=== PATIENT | female | born 1970 | race Caucasian/White ===

== ENCOUNTER 2020-12-13 17:10 | Emergency (ER) | payer SELFPAY ==
[~2020-12-13] VITALS: Ht 157.5 cm; Wt 97.5 kg
[2020-12-13 17:29] VITALS: BP 190/117; Ht 157.5 cm; Wt 97.5 kg
[2020-12-13 18:21] LABS: BASOPHIL % 0.6 % (0.2-1.3); PLATELET COUNT 291 x10^3mcL (179-408); RED CELL DISTRIBUTION WIDTH 12.7 % (12.3-17.7)
[2020-12-13 18:34] LABS: CALCIUM 9.9 mg/dL (8.5-10.1); CARBON DIOXIDE 27.5 mmol/L (21-32); CHLORIDE SERUM 103 mmol/L (98-107); CREATININE SERUM 0.6 mg/dL (0.6-1.0); GFR1 > 60 mL/min; GLUCOSE SERUM 114 mg/dL (74-106); SODIUM SERUM 138 mmol/L (136-145)
[2020-12-13 18:39] LABS: ALBUMIN 4.1 g/dL (3.4-5.0); ALKALINE PHOSPHATASE 120 U/L (46-116); ALT/SGPT 49 U/L (14-59); AST/SGOT 35 U/L (15-37); BILIRUBIN TOTAL 0.24 mg/dL (0.20-1.00)
[2020-12-13 18:46] LABS: TOTAL PROTEIN, SERUM 8.3 g/dL (6.4-8.2)
== END 2020-12-13 19:30 | disposition home or self-care (01) ==
LOC: ED 17:10
PROVIDERS: Emergency Medicine
DX: R07.89 Other chest pain (principal); I10 Essential (primary) hypertension; Z88.0 Allergy status to penicillin
CPT/HCPCS: 85378